=== PATIENT | male | born 1990 | race Caucasian/White ===

== ENCOUNTER 2020-12-08 19:31 | Emergency (ER) | payer OTHER ==
[2020-12-08 20:14] VITALS: BP 137/77; PULSE 107; RESP 20; TEMP 98.8
--- NOTE | 2020-12-08 20:50 | XR ---
EXAMINATION TYPE: XR chest 2V DATE OF EXAM: 12/08/2020 COMPARISON: NONE HISTORY: Cough TECHNIQUE: 2 views FINDINGS: Heart and mediastinum are normal. Lungs are clear. Diaphragm is normal. Bony thorax is inta ct. IMPRESSION: Normal chest.
--- NOTE | 2020-12-08 22:56 | ED ---
URI HPI - General Chief Complaint: ENT Stated Complaint: Coughing blood,SOB Time Seen by Provider: 12/08/20 21:15 Source: patient Mode of arrival: ambulatory Limitations: no limitations - Related Data Allergies Allergy/AdvReac Type Severity Reaction Status Date / Time erythromycin base Allergy Unknown Verified 12/08/20 20:14 Childhood Sulfa (Sulfonamide Allergy Unknown Verified 12/08/20 20:14 Antibiotics) Childhood Review of Systems ROS Statement: Those systems with pertinent positive or pertinent negative responses have been documented in the HPI. ROS Other: All systems not noted in ROS Statement are negative. Past Medical History Past Medical History: No Reported History History of Any Multi-Drug Resistant Organisms: None Reported Past Surgical History: Orthopedic Surgery Past Psychological History: Anxiety Smoking Status: Current every day smoker Past Alcohol Use History: Daily Past Drug Use History: None Reported General Exam Limitations: no limitations Course Vital Signs 12/08/20 20:11 Temperature 98.8 F Pulse Rate 107 H Respiratory 20 Rate Blood Pressure 137/77 O2 Sat by Pulse 98 Oximetry Disposition Clinical Impression: Hemoptysis Disposition: ADMITTED IP TO THIS HOSP Condition: Fair Instructions (If sedation given, give patient instructions): Hemoptysis (ED) Is patient prescribed a controlled substance at d/c from ED?: No Referrals: None,Stated [Primary Care Provider] - 1-2 days
== END 2020-12-08 22:45 | disposition other institution (70) ==
LOC: EC 19:31
DX: R04.2 Hemoptysis (principal); R06.02 Shortness of breath; F41.9 Anxiety disorder, unspecified; F17.200 Nicotine dependence, unspecified, uncomplicated
CPT/HCPCS: 71046; 99285